=== PATIENT | male | born 1985 | race Caucasian/White ===

== ENCOUNTER 2016-10-16 13:48 | Emergency (ER) | payer OTHER ==
[~2016-10-16] VITALS: Ht 175.3 cm; Wt 74.8 kg
[2016-10-16 14:47] LABS: URINE BILIRUBIN NEGATIVE (Negative); URINE BLOOD NEGATIVE (Negative); URINE COLOR YELLOW; URINE GLUCOSE-RANDOM* NEGATIVE (Negative); URINE KETONES NEGATIVE (Negative); URINE LEUKOCYTES-REFLEX NEGATIVE (Negative); URINE PROTEIN (DIPSTICK) NEGATIVE (Negative); URINE SPECIFIC GRAVITY 1.015 (1.003-1.035); URINE UROBILINOGEN 0.2 E.U./dl (0.2-1.0)
[2016-10-16 14:55] LABS: AMP/METHAMP POSITIVE (Negative); BARBITURATES Negative (Negative); BENZODIAZEPINES Negative (Negative); COCAINE Negative (Negative); METHADONE Negative (Negative); OPIATES POSITIVE (Negative); PCP Negative (Negative); THC Negative (Negative)
[2016-10-16 14:58] LABS: ABSOLUTE NEUTROPHILS 5.4 thou/uL (1.4-8.2); BASOPHILS 0.8 % (0.0-2.0); EOSINOPHILS 1.8 % (0.0-3.0); HEMATOCRIT 44.8 % (42.0-52.0); HEMOGLOBIN 15.1 gm/dL (14.0-18.0); MCH 28.3 pg (26.0-34.0); MCHC 33.7 % (28.0-37.0); MCV 84.1 fL (80.0-100.0); MONOCYTES 5.5 % (1.0-8.0); PLATELET COUNT 333 thou/uL (150-400); POLYS 68.9 % (36.0-66.0); RBC 5.33 mil/uL (4.50-6.00); RDW 13.8 % (10.5-14.5); WBC 7.8 thou/uL (4.0-11.0)
[2016-10-16 14:59] LABS: MANUAL DIFF NO
[2016-10-16 15:05] LABS: POTASSIUM 4.1 mmol/L (3.5-5.1)
[2016-10-16 15:08] LABS: ALBUMIN 3.9 g/dL (3.4-5.0); TOTAL BILIRUBIN 0.3 mg/dL (<0.1-1.0); TOTAL PROTEIN 7.6 g/dL (6.4-8.2)
[2016-10-16] MEDS ORDERED: NAPROSYN500 MG PO (16:31)
[2016-10-16 16:50] VITALS: BP 119/76
== END 2016-10-16 17:07 | disposition home or self-care (01) ==
LOC: ER 13:48
PROVIDERS: Emergency Medicine
DX: R22.42 Localized swelling, mass and lump, left lower limb (principal); F19.10 Other psychoactive substance abuse, uncomplicated; F17.210 Nicotine dependence, cigarettes, uncomplicated